=== PATIENT | female | born 1985 | race Caucasian/White ===

== ENCOUNTER 2016-10-24 11:57 | Emergency (ER) | payer OTHER ==
[~2016-10-24] VITALS: Ht 162.6 cm; Wt 99.8 kg
[2016-10-24 13:31] VITALS: BP 131/82
[2016-10-24] MEDS ORDERED: AUGMENTIN 875-1 EACH PO (13:31)
[2016-10-24] MEDS ORDERED: NICOTINE PATCH1 EAC3 TOP (13:31)
--- NOTE | 2016-10-24 13:31 | ED THROAT/DENTAL COMPLAINT ---
History of Present Illness General Chief Complaint: Sore Throat, Dental Pain Stated Complaint: SORE THROAT Source: patient, family Exam Limitations: no limitations Vital Signs & Intake/Output Vital Signs & Intake/Output Vital Signs Date Time Temp Pulse Resp B/P Pulse O2 O2 Flow FiO2 Ox Delivery Rate 10/24 1331 100.1 108 18 131/82 100 Room Air 10/24 1329 99.4 10/24 1159 99.4 112 18 134/82 99 Room Air Room Air Allergies Coded Allergies: No Known Allergies (10/24/16) Reconcile Medications Amoxicillin/Potassium Clav (Augmentin 875-125 Tablet) 875 MG-125 MG TABLET 1 TAB PO BID strep pharyngitis Nicotine (Nicotine Patch) 21 MG/24 HOUR PATCH.TD24 1 PAT TOP DAILY smoking cessation Triage Note: TRIAGE: 31 Y/O FEMALE PRESENTS C/O 10/10 SORE THROAT SINCE LAST NIGHT. "WHITE PATCHES BACK THERE." STREP SWABS SENT TO LAB,. Triage Nurses Notes Reviewed? yes : No Patient currently breastfeeds: No HPI: Anupama is a 31-year-old female with no significant past medical history presenting to the emergency department for 3 days of ongoing throat pain. Patient states she's got significant pain in the back of her throat which is worse with swallowing. When she looked in the back of her throat, she saw some white spots. Patient's pain was 10 on a 10 and a family member had some antibiotics so she took one dose of Augmentin yesterday evening at 9 PM and a second dose of Augmentin this morning. Patient denies neck pain, neck stiffness , trismus, changes in her voice or ability to speak. This is subjective fevers and chills. No chest pain, nausea, vomiting, shortness of breath, diarrhea, or abdominal pain. She states the pain has been so bad that she has not smoked in over 3 days and is wanting to quit. (ISATU HERNANDEZ MD) Past History Travel History Traveled to [place] past 21 day No Medical History Any Pertinent Medical History? none Neurological: NONE Surgical History Surgical History: none Psychosocial History What is your primary language Tajik Tobacco Use: Current Daily Use Daily Tobacco Use Amount/Type: => 5 Cigarettes daily ETOH Use: occasional use Illicit Drug Use: denies illicit drug use Family History Hx Contributory? No (ISATU HERNANDEZ MD) Review of Systems Review of Systems Constitutional: Reports: chills, fever. EENTM: Reports: throat pain. Respiratory: Reports: no symptoms. Cardiovascular: Reports: no symptoms. GI: Reports: no symptoms. Genitourinary: Reports: no symptoms. Musculoskeletal: Reports: no symptoms. Skin: Reports: no symptoms. Neurological/Psychological: Reports: no symptoms. Hematologic/Endocrine: Reports: no symptoms. Immunologic/Allergic: Reports: no symptoms. All Other Systems: Reviewed and Negative (ISATU HERNANDEZ MD) Physical Exam Physical Exam General Appearance: well developed/nourished, no apparent distress, alert, awake Head: atraumatic, normal appearance Eyes: Bilateral: normal appearance, PERRL, EOMI. Nose: normal inspection Mouth/Throat: tonsillar exudate, tonsillar swelling, erythematous large tonsils w/ exudates Neck: normal inspection, supple, full range of motion, trachea midline, anterior cervical lymphadenopathy Cardiovascular/Respiratory: normal breath sounds, normal peripheral pulses, regular rate/rhythm, no respiratory distress Gastrointestinal: soft, nontender abdomen Back: normal inspection, normal range of motion Neurologic/Psych: no motor/sensory deficits, awake, alert, oriented x 3, normal gait, normal mood/affect Skin: intact, normal color Core Measures ACS in differential dx? No Severe Sepsis Present: No Septic Shock Present: No (ISATU HERNANDEZ MD) Progress Differential Diagnosis: Ludwigs angina, meningitis, cristobal-tonsillar abscess, strep pharyngitis Plan of Care: Orders Procedure Date/time Status THROAT CULTURE W/QUICK STREP 10/24 1202 Complete Patient was swabbed out in triage. She is ill-appearing but nontoxic. Has full range of motion of her neck without any tenderness to palpation or stiffness to suggest meningitis. There is no deviation of the uvula midline. No changes in voice to report so less likely peritonsillar abscess. Patient is able to open her mouth with no trismus or pain. Significantly enlarged tonsils with exudate as well as cervical adenopathy likely pharyngitis. No induration or increased swelling in the submandibular area to suggest Tavares's angina. There is from positive for strep pharyngitis. Patient has artery taken 2 doses one yesterday evening and one this morning of Augmentin that was her home. Given patient's acute pain, we will administer dexamethasone to decrease in swelling and assist with the pain. Patient also given Augmentin prescription a 75 twice a day for the next 7 days. Patient also given a prescription for nicotine patches she is in the process of trying to quit smoking and was previously a one pack-a-day smoker. (ISATU HERNANDEZ MD) Departure Departure Time of Disposition: 1326 Disposition: HOME OR SELF CARE Condition: Stable Clinical Impression Primary Impression: Strep pharyngitis Secondary Impressions: Sore throat Referrals: PATIENT HAS NO PRIMARY CARE DR (PCP/Family) Additional Instructions: Please take the full course of antibiotics as prescribed. If you have worsening throat pain, unable to open your mouth, unable to eat or swallow or any other concerning symptoms, please return to the emergency department for further evaluation. Congradulations on quitting smoking over the past few days, you have been written a prescription for nicotine patch today. Please use this as a way to stop smoking permanently. Departure Forms: Customer Survey General Discharge Information Prescriptions: Current Visit Scripts Amoxicillin/Potassium Clav (Augmentin 875-125 Tablet) 1 TAB PO BID #14 TAB Nicotine (Nicotine Patch) 1 PAT TOP DAILY #28 PAT Ref 1 (ISATU HERNANDEZ MD) PA/DIRECTOR HUMAN SERVICES Co-Sign Statement Statement: ED Attending supervision documentation- [] I saw and evaluated the patient. I have also reviewed all the pertinent lab results and diagnostic results. I agree with the findings and the plan of care as documented in the PA's/DIRECTOR HUMAN SERVICES's documentation. x I have reviewed the ED Record and agree with the PA's/DIRECTOR HUMAN SERVICES's documentation. [] Additions or exceptions (if any) to the PAs/DIRECTOR HUMAN SERVICES's note and plan are summarized below: [] (ZOE GARCIA,IMER)
== END 2016-10-24 13:32 ==
LOC: ERH 11:57
DX: J02.0 Streptococcal pharyngitis (principal); F17.210 Nicotine dependence, cigarettes, uncomplicated
CPT/HCPCS: J1100

== ENCOUNTER 2016-12-31 11:12 | Emergency (ER) | payer OTHER ==
[~2016-12-31] VITALS: Ht 162.6 cm; Wt 95.3 kg
[~2016-12-31 11:12] MED LIST: AUGMENTIN 875-1 EACH PO; NICOTINE PATCH1 EAC3 TOP
--- NOTE | 2016-12-31 11:36 | ED SKIN/ALLERGY COMPLAINT ---
History of Present Illness General Chief Complaint: Allergy Symptoms Stated Complaint: FACIAL SWELLING X1DAY Source: patient, family Exam Limitations: no limitations Vital Signs & Intake/Output Vital Signs & Intake/Output Vital Signs Date Time Temp Pulse Resp B/P B/P Pulse O2 O2 Flow FiO2 Mean Ox Delivery Rate 12/31 1508 98.0 80 20 130/80 99 Room Air / 1310 82 20 128/84 99 Room Air 12/31 1117 97.2 78 18 136/84 99 Room Air Allergies Coded Allergies: No Known Allergies (10/24/16) Reconcile Medications Amoxicillin/Potassium Clav (Augmentin 875-125 Tablet) 875 MG-125 MG TABLET 1 TAB PO BID strep pharyngitis Clindamycin HCl (Cleocin HCl) 300 MG CAPSULE 1 CAP PO TID FACIAL CELLULITIS/ DENTAL INFEC Nicotine (Nicotine Patch) 21 MG/24 HOUR PATCH.TD24 1 PAT TOP DAILY smoking cessation Triage Note: 31 Y/O FEMALE C/O R SIDED FACIAL SWELLING X 2 DAYS; STATES SHE HAD A TOOTHACHE AND THEN SWELLING STARTED. AFEBRILE. Triage Nurses Notes Reviewed? yes : No Patient currently breastfeeds: No HPI: 31 yo F presenting with dental pain, right facial swelling. Right anterior dental pain starting 2-3 days ago, largely improved, progressive erythema, swelling, pain of right maxilla/nasolabial fold since last night. Denies fevers, chills, chest pain, SOB, palpitations, headache, neck pain, neck stiffness, weakness, numbness or focal neurologic Sx. (RADHA GARCIA,SOFIYA) Past History Travel History Traveled to [place] past 21 day No Medical History Any Pertinent Medical History? 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 Yes (RADHA GARCIA,SOFIYA) Review of Systems Review of Systems Constitutional: Reports: no symptoms. EENTM: Reports: nasal pain, mouth pain. Respiratory: Reports: no symptoms. Cardiovascular: Reports: no symptoms. GI: Reports: no symptoms. Genitourinary: Reports: no symptoms. Musculoskeletal: Reports: no symptoms. Skin: Reports: no symptoms. Neurological/Psychological: Reports: no symptoms. Hematologic/Endocrine: Reports: no symptoms. Immunologic/Allergic: Reports: no symptoms. All Other Systems: Reviewed and Negative (RADHA GARCIA,SOFIYA) Physical Exam Physical Exam General Appearance: well developed/nourished, no apparent distress, alert Head: swelling Eyes: Bilateral: PERRL, EOMI. Neck: normal inspection, supple, full range of motion Cardiovascular: regular rate/rhythm, normal peripheral pulses Gastrointestinal: normal bowel sounds, soft, non-tender Comments: Oropharynx: Mild TTP with punctate white lesion to gingival surface overlying tooth #8 with mild TTP HEENT: Erythema/edema of right nasolabial fold, right maxilla, upper right lip, some pain with movement of right eye Neurologic: Cranial nerves II-XII intact, PERRL, EOMI C-spine: Full ROM without pain (RADHA GARCIA,SOFIYA) Progress Differential Diagnosis: abscess/cellulitis, allergic reaction, anaphylaxis, angioedema, asthma, contact dermatitis, drug reaction, erythema multiforme, lyme disease, meningitis/sepsis, piyriasis rosea, RMSF, scarlet fever, shingles, syphilis/gonococcemia, toxic shock syndrome, urticaria Plan of Care: Orders Procedure Date/time Status Add-on Test (ER Only) 12/31 1333 Active HUMAN BETA HCG SCREEN 12/31 1225 Complete CBC WITHOUT DIFFERENTIAL 12/31 1219 Complete BASIC METABOLIC PANEL 12/31 1219 Complete Current Medications Sig/Shawna Start time Last Medication Dose Stop Time Status Admin Amoxicillin/ 875 MG ONCE ONE 12/31 1215 CAN Clavulanate Potassium 12/31 1216 (Augmentin) Laboratory Tests 12/31/16 1323: Urine Test Cancelled 12/31/16 1225: Anion Gap 11, Estimated GFR > 60, BUN/Creatinine Ratio 17.1, Glucose 85, Calcium 9.7, Total Beta HCG NEGATIVE, CBC w Diff NO MAN DIFF REQ, RBC 4.70, MCV 85.8, MCH 29.3, RDW 12.7, MPV 7.8, Gran % 72.9, Lymphocytes % 20.5, Monocytes % 5.5, Eosinophils % 0.8, Basophils % 0.3, Absolute Granulocytes 5.9, Absolute Lymphocytes 1.7, Absolute Monocytes 0.4, Absolute Eosinophils 0.1, Absolute Basophils 0, PUBS MCHC 34.2 Physician MDM: 31 yo F presenting with right upper dental pain, facial swelling. VSS, afebrile, remainder of exam as above. DDx: Dental abscess, facial cellulitis, consider deep head/neck space infection or orbital cellulitis. Will treat with clindamycin, 1st dose IV in ED. CBC, BMP unermarkable. CT face with IV contrast without abscess or orbital cellulitis. Discharged with clinamycin Rx , return precautions, plan to f/u with dentist in the next 2-3 days for further evaluation of possible abscess. (RADHA GARCIA,SOFIYA) Departure Departure Disposition: HOME OR SELF CARE Condition: Stable Clinical Impression Primary Impression: Facial cellulitis Secondary Impressions: Pain, dental Referrals: AUDREY HERMAN MD (PCP/Family) Additional Instructions: Take clindamycin for the next 7 days. Follow up with a dentist in the next 2-3 days. Return to the ED for any new, worsening, or concerning symptoms. Departure Forms: Customer Survey General Discharge Information Prescriptions: Current Visit Scripts Clindamycin HCl (Cleocin HCl) 1 CAP PO TID #21 CAP (SOFIYA GARCIA MD) PA/VB NET DEVELOPER Co-Sign Statement Statement: ED Attending supervision documentation- [] I saw and evaluated the patient. I have also reviewed all the pertinent lab results and diagnostic results. I agree with the findings and the plan of care as documented in the PA's/VB NET DEVELOPER's documentation. [X] I have reviewed the ED Record and agree with the PA's/VB NET DEVELOPER's documentation. [] Additions or exceptions (if any) to the PAs/VB NET DEVELOPER's note and plan are summarized below: [] (SONG PENG DO)
[2016-12-31 12:36] LABS: ABSOLUTE BASOPHIL COUNT 0 /CUMM (0.0-0.2); ABSOLUTE EOSINOPHIL COUNT 0.1 /CUMM (0.0-0.7); ABSOLUTE GRANULOCYTE CT 5.9 /CUMM (1.4-6.5); ABSOLUTE LYMPH COUNT 1.7 /CUMM (1.2-3.4); ABSOLUTE MONOCYTE COUNT 0.4 /CUMM (0.10-0.60); BASOPHIL % 0.3 % (0.0-2.0); EOSINOPHIL % 0.8 % (0-5); GRANULOCYTE % 72.9 % (42.2-75.2); HEMATOCRIT 40.3 % (37-47); MEAN CORPUSCULAR HGB 29.3 PG (27.0-31.0); MEAN CORPUSCULAR HGB CONC 34.2 G/DL (33.0-37.0); MEAN CORPUSCULAR VOLUME 85.8 FL (81.0-99.0); MEAN PLATELET VOLUME 7.8 FL (7.4-10.4); PLATELET COUNT 245 /CUMM (130-400); RBC DISTRIBUTION WIDTH 12.7 % (11.5-14.5); WHITE BLOOD CELL COUNT 8.1 /CUMM (4.8-10.8)
--- NOTE | 2016-12-31 14:34 | CT SCAN REPORT ---
EXAMINATION: CT MAXILLOFACIAL WITH CONTRAST CLINICAL INFORMATION: Deep space head and neck abscess. Septal cellulitis. COMPARISON: CT head 06/18/2009. TECHNIQUE: Multidetector helical imaging was performed in the axial plane with generation of coronal and sagittal reformatted images. The examination was performed after the administration of 100 mL of Optiray 320 intravenous contrast DLP: 342.86 mGy-cm FINDINGS: Globes are symmetric. There is no abnormal retrobulbar mass or inflammation. No abnormal preseptal inflammation. Orbital apices are intact. The lamina papyracea and orbital floors are intact. Maxillary sinuses are well aerated and the primary maxillary sinus ostia are widely patent. Uncinate processes are intact. No ostiomeatal unit dysfunction. The frontal sinuses are not pneumatized. The ethmoid air cells and sphenoid sinus are well aerated. The sphenoid sinus ostia are patent. The nasal septum deviates to the right. The nasal cavity is otherwise unremarkable. Limited visualization of intracranial structures reveals no abnormal finding. Specifically there is no midline shift or hydrocephalus. Limited visualization of the upper neck reveals a few symmetrically prominent albeit nonspecific cervical lymph nodes, none of which demonstrate worrisome enhancement characteristics to suggest capsular invasion or central necrosis. There is no mastoid or middle ear effusion. The temporomandibular joints are symmetric. There is subtle asymmetric stranding within the subcutaneous tissues of the right premaxillary region. No drainable fluid collection. A well marginated 1.2 cm cystic lesion is visualized within the subcutaneous tissues of the left face overlying the left parotid gland best illustrated on axial image 91 of 217 series 2. IMPRESSION: Mild nonspecific inflammatory stranding within the subcutaneous tissues in the right premaxillary region. No drainable fluid collection. No retrobulbar mass or inflammation. Of note there is an 1.2 cm epidermal inclusion cyst in the left infra-auricular region.
[2016-12-31] MEDS ORDERED: CLEOCIN HCL300 M1 PO (14:54)
[2016-12-31 15:08] VITALS: BP 130/80
== END 2016-12-31 15:11 ==
LOC: ERH 11:12
PROVIDERS: Student in an Organized Health Care Education/Training Program
DX: L03.211 Cellulitis of face (principal); K08.89 Other specified disorders of teeth and supporting structures
CPT/HCPCS: 81025; 96365; 96375; J1885

== ENCOUNTER 2017-08-14 15:14 | Emergency (ER) | payer OTHER ==
[~2017-08-14] VITALS: Ht 162.6 cm; Wt 108.9 kg
[~2017-08-14 15:14] MED LIST changes: +CLEOCIN HCL300 M1 PO; +DOXYCYCLINE HY100 M4 PO; +IBUPROFEN600 M1 PO; +IBUPROFEN800 M1 PO
[2017-08-14 15:19] VITALS: BP 150/86
--- NOTE | 2017-08-14 15:20 | ED ANIMAL BITE/WOUND CHECK ---
History of Present Illness General Chief Complaint: Skin Rash/ Abcess Stated Complaint: RECHECK OF FACIAL ABSCESS Source: patient Exam Limitations: no limitations Vital Signs & Intake/Output Vital Signs & Intake/Output Vital Signs Date Time Temp Pulse Resp B/P B/P Pulse O2 O2 Flow FiO2 Mean Ox Delivery Rate 08/14 1519 97.6 95 18 150/86 98 Room Air 08/14 1519 98 Allergies Coded Allergies: sulfamethoxazole (From BACTRIM) (Severe, hives 08/10/17) trimethoprim (From BACTRIM) (Severe, hives 08/10/17) Reconcile Medications Clindamycin HCl (Cleocin HCl) 300 MG CAPSULE 1 CAP PO TID abscess/cellulitis Doxycycline Hyclate 100 MG TABLET 1 TAB PO BID abscess face Ibuprofen 800 MG TABLET 1 TAB PO TID pain Ibuprofen 600 MG TABLET 1 TAB PO TID PRN PAIN with food Triage Note: PT RETURNED FOR WOUND CHECK LEFT CHEEK. Triage Nurses Notes Reviewed? yes Onset: Abrupt Duration: day(s): Timing: recent history No Modifying Factors: none : No Patient currently breastfeeds: No HPI: 31-year-old female comes into the emergency room for further evaluation of abscess recheck and packing removal to left side of face. Patient was seen here 2 days ago. Denies any fever chills vomiting. Some associated headaches. Comes in for further evaluation. (Devyn Field) Past History Travel History Traveled to [place] past 21 day No Medical History Any Pertinent Medical History? 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 No (Devyn Field) Review of Systems Review of Systems Constitutional: Reports: no symptoms. EENTM: Reports: no symptoms. Respiratory: Reports: no symptoms. Cardiovascular: Reports: no symptoms. GI: Reports: no symptoms. Genitourinary: Reports: no symptoms. Musculoskeletal: Reports: no symptoms. Skin: Reports: see HPI. Neurological/Psychological: Reports: no symptoms. Hematologic/Endocrine: Reports: no symptoms. Immunologic/Allergic: Reports: no symptoms. All Other Systems: Reviewed and Negative (Devyn Field) Physical Exam Physical Exam General Appearance: well developed/nourished, mild distress Head: some mild erythema to left side of face, no fluctuance, packing removed, some mild induration, Eyes: Bilateral: normal appearance. Ears, Nose, Throat: normal ENT inspection, hearing grossly normal Neck: normal inspection Respiratory: no respiratory distress Back: normal inspection Extremities: normal range of motion Neurologic/Psych: awake, alert, oriented x 3, normal mood/affect Skin: intact, normal color, warm/dry (Devyn Field) Progress Differential Diagnosis: abscess, cellulitis, joint infection, tenosysnovitis Plan of Care: 08/14/2017 3:38:41 PM Abscess is significantly improved from the other day. Patient will follow-up with general surgeon. Continue compresses and antibiotics. Return if any other concerns. (Devyn Field) Departure Departure Disposition: HOME OR SELF CARE Condition: Stable Clinical Impression Primary Impression: Encounter for abscess packing removal Referrals: Juan Alberto Rascon MD (PCP/Family) Fernando GARCIA,Giles Rivera Additional Instructions: Warm compresses. Continue clindamycin. Follow-up with general surgeon. Return if any other concerns. Please go over all results of today's visit with your primary care doctor. Contact your primary care doctor to let them know you were here in the emergency room. There may be nonspecific findings which may not be related to your visit today here in the emergency room but may require further evaluation and chronic monitoring by your primary care doctor. If you had a laceration today the chance of foreign body always remains. You should follow-up with your primary care doctor for recheck in 3-5 days for a wound check. If you had an x-ray done there is a chance that a fracture could have been missed on initial read and you should follow-up with your primary care doctor for repeat x-rays if symptoms persist. If your blood pressure was elevated here in the emergency room please have rechecked by [facility] primary care doctor within the next 48. If you were prescribed a narcotic here in the emergency room or any type of controlled substances you're not allowed to drive while taking this medication or operate any type of heavy machinery. Narcotics can make you feel lightheaded dizziness nausea and can cause constipation. You may need to leaf size picker a stool softener. Thank you for choosing [facility] emergency room. Please return to the emergency room immediately if you have any other concerns worsening of symptoms. Departure Forms: Customer Survey General Discharge Information (Devyn Field) PA/BUSINESS PRACTICES OFFICER Co-Sign Statement Statement: ED Attending supervision documentation- [] I saw and evaluated the patient. I have also reviewed all the pertinent lab results and diagnostic results. I agree with the findings and the plan of care as documented in the PA's/BUSINESS PRACTICES OFFICER's documentation. [X] I have reviewed the ED Record and agree with the PA's/BUSINESS PRACTICES OFFICER's documentation. [] Additions or exceptions (if any) to the PAs/BUSINESS PRACTICES OFFICER's note and plan are summarized below: [] (Porfirio GARCIA,Nilson Broussard)
== END 2017-08-14 15:25 ==
LOC: ERH 15:14
DX: Z48.00 Encounter for change or removal of nonsurgical wound dressing (principal)